=== PATIENT | female | born 1930 | race Caucasian/White ===

== ENCOUNTER 2017-09-25 12:29 | Emergency (ER) | payer OTHER ==
[~2017-09-25 12:29] MED LIST: MEV20 PO; ZES20 PO
[2017-09-25 13:32] LABS: BASOPHIL % 0.3 % (0-2); PLATELET COUNT 233 x10^3mcL (130-400)
[2017-09-25 13:36] LABS: RED CELL DISTRIBUTION WIDTH 15.7 % (11.5-14.5)
[2017-09-25 13:49] LABS: CALCIUM 9.2 mg/dL (8.5-10.1); CARBON DIOXIDE 33.5 mmol/L (21-32); CHLORIDE SERUM 103 mmol/L (98-107); CREATININE SERUM 0.9 mg/dL (0.6-1.0); GLUCOSE SERUM 99 mg/dL (74-106); POTASSIUM SERUM 4.2 mmol/L (3.5-5.1); SODIUM SERUM 141 mmol/L (136-145)
[2017-09-25 13:56] LABS: ALBUMIN 3.6 g/dL (3.4-5.0); ALKALINE PHOSPHATASE 99 U/L (46-116); ALT/SGPT 25 U/L (14-59); AMYLASE 55 U/L (25-115); AST/SGOT 21 U/L (15-37); BILIRUBIN TOTAL 0.7 mg/dL (0.20-1.00); CHOLESTEROL 140 mg/dL (<200); HDL CHOLESTEROL 51 mg/dL (40-60); LIPASE 108 IU/L (73-393); MAGNESIUM 1.8 mg/dL (1.8-2.4); T4(THYROXINE) 7.1 ug/dL (4.7-13.3); TOTAL PROTEIN, SERUM 7.9 g/dL (6.4-8.2)
[2017-09-25 14:11] LABS: UA SPECIFIC GRAVITY <=1.005 (1.005-1.035); microscopic required? YES; urine erythrocyte TRACE (NEGATIVE)
[2017-09-25 14:21] LABS: AMPHETAMINE QUAL UR NONE DETECTED (NEG <=1000)
[2017-09-25 15:23] VITALS: BP 147/72
== END 2017-09-25 15:23 | disposition home or self-care (01) ==
LOC: ED 12:29
PROVIDERS: Emergency Medicine
DX: G40.909 Epilepsy, unspecified, not intractable, without status epilepticus (principal); I48.91 Unspecified atrial fibrillation; E78.00 Pure hypercholesterolemia, unspecified; I10 Essential (primary) hypertension; Z90.49 Acquired absence of other specified parts of digestive tract
CPT/HCPCS: 83880; G0480; Q0092